=== PATIENT | male | born 1955 | race African-American/Black ===

== ENCOUNTER 2016-05-15 23:38 | Emergency (ER) | payer OTHER ==
[~2016-05-15] VITALS: Ht 182.9 cm; Wt 74.0 kg
[~2016-05-15 23:38] MED LIST: Z.0.NO CURRENT MEDS
[2016-05-15 23:39] VITALS: BP 133/79; PULSE 76; RESP 18; TEMP 97.6; O2SAT 97
[2016-05-16] MEDS ORDERED: KETOROLAC TROMETHAMINE 60 MG/2 ML (IM) VIAL IM ONE (01:30)
[2016-05-16] MEDS ORDERED: CYCLOBENZAPRINE HCL 10 MG TAB PO ONE (01:30)
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
[2016-05-16 02:38] LABS: AUTOMATED NEUTROPHIL # 6.1 TH/MM3 (1.8-7.7); BASOPHIL % 0.6 % (0.0-2.0); EOSINOPHIL # 0.1 TH/MM3 (0-0.4); EOSINOPHIL % 0.7 % (0.0-4.0); HEMATOCRIT 41.2 % (39.0-51.0); HEMO FLAGS DIFF FINAL; LYMPH % 14.3 % (9.0-44.0); LYMPHOCYTE # 1.1 TH/MM3 (1.0-4.8); MEAN CELL VOLUME 87.3 FL (80.0-100.0); MEAN CORPUSCULAR HEMOGLOBIN 29.9 PG (27.0-34.0); MEAN CORPUSCULAR HGB CONC 34.3 % (32.0-36.0); MONO % 7.6 % (0.0-8.0); NEUT % 76.8 % (16.0-70.0); PLATELET COUNT 255 TH/MM3 (150-450); RED BLOOD COUNT 4.72 MIL/MM3 (4.50-5.90); RED CELL DISTRIBUTION WIDTH 15.2 % (11.6-17.2); WHITE BLOOD COUNT 7.9 TH/MM3 (4.0-11.0)
[2016-05-16 03:03] LABS: BICARBONATE 33.1 MEQ/L (21.0-32.0); POTASSIUM 3.5 MEQ/L (3.5-5.1)
[2016-05-16] MEDS ORDERED: IOHEXOL 350 MG/ML 10 ML VIAL (for RAD DIAG) IV ONE (03:24)
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
[2016-05-16] MEDS ORDERED: oxyCODONE/ACETAMINOPHEN 5 MG/325 MG TAB PO ONE (04:30)
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
[2016-05-16] MEDS ORDERED: PERC5TAB12 PO (05:36)
== END 2016-05-16 06:16 | disposition home or self-care (01) ==
LOC: NEPE 23:38
DX: S32.008A Other fracture of unspecified lumbar vertebra, initial encounter for closed fracture (principal); V43.52XA Car driver injured in collision with other type car in traffic accident, initial encounter
CPT/HCPCS: 71020; 72110; 74177; 80048; 85025; 96372; 99284; J1885; Q9967

== ENCOUNTER 2016-09-27 00:07 | Observation (INO) | payer MEDICARE, OTHER ==
[2016-09-27] VITALS (8 sets, daily range): BP systolic 99–139; BP diastolic 60–78; PULSE 54–89; RESP 16–18; TEMP 96.1–98.3; O2SAT 93–100
[~2016-09-27] VITALS: Ht 180.3 cm; Wt 74.0 kg
[~2016-09-27 00:07] MED LIST changes: +PERC5TAB12 PO; -Z.0.NO CURRENT MEDS
[2016-09-27] MEDS ORDERED: HYDR25TA5 PO (00:25)
[2016-09-27] MEDS ORDERED: IBUP-232 PO (00:25)
--- NOTE | 2016-09-27 00:28 | PD ---
HPI Chief Complaint: Abdominal Pain Time Seen by Provider: 00:28 Travel History International Travel<30 days: No Contact w/Intl Traveler<30days: No Traveled to known affect area: No History of Present Illness HPI 61-year-old male came to the emergency room with history of right lower quadrant tenderness that's been going on for past 6-7 hours. Patient says he vomited 3 times prior to coming to the emergency room. He did not have much of an appetite to eat his lunch today and eating made the pain worse. His never had this kind of pain before. No fever or chills. No history of diarrhea. Pain does not radiate anywhere else. It is 8 out of 10. Vital signs otherwise stable. PFSH Past Medical History Narrative Medical List of his past medical, surgical, social and family history as reviewed from the nursing note. Cardiovascular Problems: Yes (HTN) Diminished Hearing: No Hypertension: Yes Influenza Vaccination: Yes Social History Alcohol Use: No (6 BEERS/DAY (DENIES)) Tobacco Use: Yes (8 PER DAY) Substance Use: No Allergies-Medications (Allergen,Severity, Reaction): Coded Allergies: No Known Allergies (Verified , 09/27/16) Comments List of his allergies reviewed from the nursing note. Reported Meds & Prescriptions Reported Meds & Active Scripts Active Reported [place] (Hydrocodone-Acetaminophen) 5-325 mg Tab 1 Tab PO Q4H PRN Ibuprofen 600 Mg Tab 600 Mg PO Q6H PRN Hydrochlorothiazide 25 Mg Tab 25 Mg PO DAILY Narrative Medication List of his home medications reviewed from the nursing note. Review of Systems Except as stated in HPI: all other systems reviewed are Neg Physical Exam Narrative GENERAL: Awake, alert, moderate distress SKIN: Focused skin assessment warm/dry. HEAD: Atraumatic. Normocephalic. EYES: Pupils equal and round. No scleral icterus. No injection or drainage. ENT: No nasal bleeding or discharge. Dry mucous membrane and coated tongue NECK: Trachea midline. No JVD. CARDIOVASCULAR: Regular rate and rhythm. No murmur appreciated. RESPIRATORY: No accessory muscle use. Clear to auscultation. Breath sounds equal bilaterally. GASTROINTESTINAL: Abdomen soft, right lower quadrant tenderness and guarding, nondistended. Diminished bowel sounds. Hepatic and splenic margins not palpable. MUSCULOSKELETAL: No obvious deformities. No clubbing. No cyanosis. No edema. NEUROLOGICAL: Awake and alert. No obvious cranial nerve deficits. Motor grossly within normal limits. Normal speech. PSYCHIATRIC: Appropriate mood and affect; insight and judgment normal. Data Data Last Documented VS Orders Complete Blood Count With Diff (09/27/16 00:33) Comprehensive Metabolic Panel (09/27/16 00:33) Lipase (09/27/16 00:33) Urinalysis - C+S If Indicated (09/27/16 00:33) Ct Abd/Pel W/O Iv Contrast (09/27/16 00:33) Iv Access Insert/Monitor (09/27/16 00:33) Ecg Monitoring (09/27/16 00:33) Oximetry (09/27/16 00:33) Morphine Inj (Morphine Inj) (09/27/16 00:45) Ondansetron Inj (Zofran Inj) (09/27/16 00:45) Sodium Chlor 0.9% 1000 Ml Inj (Ns 1000 M (09/27/16 00:33) Sodium Chloride 0.9% Flush (Ns Flush) (09/27/16 00:45) Blood Culture (09/27/16 01:51) Piperacil-Tazo 3.375 Gm Premix (Zosyn 3. (09/27/16 02:00) Sodium Chlor 0.9% 1000 Ml Inj (Ns 1000 M (09/27/16 02:00) Admit Order (Ed Use Only) (09/27/16 02:12) Bupivacaine-Epi Pf 0.5% Inj (Sensorcaine (09/27/16 06:57) Place In Observation (09/27/16 08:14) Code Status (09/27/16 08:14) Vital Signs (Adult) YESI.Q4H (09/27/16 08:14) Activity Oob Ad [place] (09/27/16 08:14) ^ Discontinue Iv (09/27/16 08:14) Ice / Cold Pack PRN (09/27/16 08:14) Diet Regular Basic (09/27/16 Breakfast) Sodium Chlor 0.9% 1000 Ml Inj (Ns 1000 M (09/27/16 08:14) Sodium Chloride 0.9% Flush (Ns Flush) (09/27/16 08:15) Sodium Chloride 0.9% Flush (Ns Flush) (09/27/16 09:00) Ketorolac Inj (Toradol Inj) (09/27/16 08:15) Acetamin-Hydrocod 325-5 Mg ([place] 5-325 (09/27/16 08:15) Morphine Inj (Morphine Inj) (09/27/16 08:15) Resp Incentive Spirometry (09/27/16 08:14) ^ Follow Up (09/27/16 08:14) Acetamin-Hydrocod 325-5 Mg ([place] 5-325 (09/27/16 08:15) Morphine Inj (Morphine Inj) (09/27/16 08:15) Ondansetron Inj (Zofran Inj) (09/27/16 08:15) Diphenhydramine (Benadryl) (09/27/16 08:15) Post-Op Orders (For Pharmacy) (Post-Op O (09/27/16 08:15) Do Not Adm Any Anticoagulants (09/27/16 08:15) Scd Bilateral/Knee High YESI.QSHIFT (09/27/16 08:14) Jony Bilateral/Knee High YESI.QSHIFT (09/27/16 08:14) Notify Dr: Blood Pressure (09/27/16 08:14) Notify Dr: Respiratory Rate (09/27/16 08:14) Naloxone Inj (Narcan Inj) (09/27/16 08:15) ^ Discharge Plan (09/27/16 08:14) Labs Laboratory Tests Test 09/27/16 09/27/16 00:40 02:45 White Blood Count 11.5 TH/MM3 Red Blood Count 4.75 MIL/MM3 Hemoglobin 14.1 GM/DL Hematocrit 42.3 % Mean Corpuscular Volume 89.0 FL Mean Corpuscular Hemoglobin 29.7 PG Mean Corpuscular Hemoglobin 33.4 % Concent Red Cell Distribution Width 15.3 % Platelet Count 223 TH/MM3 Mean Platelet Volume 7.8 FL Neutrophils (%) (Auto) 77.9 % Lymphocytes (%) (Auto) 16.1 % Monocytes (%) (Auto) 5.2 % Eosinophils (%) (Auto) 0.5 % Basophils (%) (Auto) 0.3 % Neutrophils # (Auto) 8.9 TH/MM3 Lymphocytes # (Auto) 1.8 TH/MM3 Monocytes # (Auto) 0.6 TH/MM3 Eosinophils # (Auto) 0.1 TH/MM3 Basophils # (Auto) 0.0 TH/MM3 CBC Comment DIFF FINAL Differential Comment Sodium Level 141 MEQ/L Potassium Level 4.1 MEQ/L Chloride Level 104 MEQ/L Carbon Dioxide Level 29.4 MEQ/L Anion Gap 8 MEQ/L Blood Urea Nitrogen 10 MG/DL Creatinine 1.08 MG/DL Estimat Glomerular Filtration 84 ML/MIN Rate Random Glucose 153 MG/DL Calcium Level 9.0 MG/DL Total Bilirubin 0.4 MG/DL Aspartate Amino Transf 28 U/L (AST/SGOT) Alanine Aminotransferase 27 U/L (ALT/SGPT) Alkaline Phosphatase 87 U/L Total Protein 7.2 GM/DL Albumin 3.7 GM/DL Lipase 30 U/L Urine Color YELLOW Urine Turbidity CLEAR Urine pH 5.5 Urine Specific [place] 1.020 Urine Protein NEG mg/dL Urine Glucose (UA) NEG mg/dL Urine Ketones TRACE mg/dL Urine Occult Blood NEG Urine Nitrite NEG Urine Bilirubin NEG Urine Urobilinogen LESS THAN 2.0 MG/DL Urine Leukocyte Esterase NEG Urine RBC 1 /hpf Urine WBC 1 /hpf Urine Mucus FEW /lpf Microscopic Urinalysis Comment CULT NOT INDICATED MDM Medical Decision Making Medical Screen Exam Complete: Yes Emergency Medical Condition: Yes Medical Record Reviewed: Yes Differential Diagnosis Acute appendicitis, acute peritonitis, acute diverticulitis, abdominal pain NOS Narrative Course 12:58 AM given the exam suspicion is really high for acute appendicitis. Awaiting for the blood test results to come back and the CAT scan to be done and resulted. Patient is getting IV fluid and pain medication. 1:52 AM CAT scan report is positive for early appendicitis. I've given him a dose of Zosyn and another liter of IV fluid bolus. Awaiting for the surgeon to call back. 1:54 AM I spoke with the general surgeon Dr. Doty who wanted the patient to be admitted to the hospitalist service. He will consult and do the surgery. [address] Reavse was asked for admission and thought it was inappropriate medical admission since it was primarily a surgical issue. This was conveyed to Dr. Doty and he was wiling to admit the patient but wanted the patient to be in the ER till 8AM when he would come and take the patient to the OR. Patient has been kept NPO and updated about the OR. Procedures EKG Prior to Arrival: No Physician Communication Physician Communication Dr. Doty Diagnosis Primary Impression: Acute appendicitis Qualified Code: K35.80 - Acute appendicitis, unspecified acute appendicitis type Admitting Information Admitting Physician Requests: it Venkat Sorensen MD September 27, 2016 00:28
[2016-09-27] MEDS ORDERED: SODIUM CHLOR 0.9% 1000 ML INJ 1,000 ML IV SCH ×2 (00:33→08:14)
[2016-09-27] MEDS ORDERED: ONDANSETRON HCL 4 MG/2 ML VIAL IVP ONE (00:45)
[2016-09-27] MEDS ORDERED: SODIUM CHLORIDE 0.9% FLUSH 10 ML FLUSH IV FLUSH PRN (00:45)
[2016-09-27] MEDS ORDERED: MORPHINE SULFATE 4 MG/ML INJ IV PUSH ONE (00:45)
[2016-09-27 00:46] LABS: AUTOMATED NEUTROPHIL # 8.9 TH/MM3 (1.8-7.7); BASOPHIL % 0.3 % (0.0-2.0); EOSINOPHIL # 0.1 TH/MM3 (0-0.4); EOSINOPHIL % 0.5 % (0.0-4.0); HEMATOCRIT 42.3 % (39.0-51.0); HEMO FLAGS DIFF FINAL; LYMPH % 16.1 % (9.0-44.0); LYMPHOCYTE # 1.8 TH/MM3 (1.0-4.8); MEAN CORPUSCULAR HEMOGLOBIN 29.7 PG (27.0-34.0); MEAN CORPUSCULAR HGB CONC 33.4 % (32.0-36.0); MONO % 5.2 % (0.0-8.0); NEUT % 77.9 % (16.0-70.0); PLATELET COUNT 223 TH/MM3 (150-450); RED BLOOD COUNT 4.75 MIL/MM3 (4.50-5.90); RED CELL DISTRIBUTION WIDTH 15.3 % (11.6-17.2); WHITE BLOOD COUNT 11.5 TH/MM3 (4.0-11.0)
[2016-09-27 01:11] LABS: ALKALINE PHOSPHATASE 87 U/L (45-117); TOTAL BILIRUBIN ADULT 0.4 MG/DL (0.2-1.0)
[2016-09-27 01:14] LABS: ALT (GPT) 27 U/L (12-78); ANION GAP 8 MEQ/L (5-15); AST (GOT) 28 U/L (15-37); BICARBONATE 29.4 MEQ/L (21.0-32.0); BLOOD UREA NITROGEN 10 MG/DL (7-18); CHLORIDE 104 MEQ/L (98-107); GLOMERULAR FILTRATION RATE 84 ML/MIN (>89); POTASSIUM 4.1 MEQ/L (3.5-5.1); SODIUM (NA) 141 MEQ/L (136-145)
--- NOTE | 2016-09-27 01:23 | RADRPT ---
EXAM DATE/TIME: 09/27/2016 00:58 [facility] COMPARISON: CT ABDOMEN & PELVIS W CONTRAST, May 16, 2016, 3:21. INDICATIONS : Mid abdominal pain. ORAL CONTRAST: No oral contrast ingested. RADIATION DOSE: 4.75 CTDIvol (mGy) MEDICAL HISTORY : Hypertension. SURGICAL HISTORY : None. ENCOUNTER: Initial ACUITY: 3 days PAIN SCALE: 6/10 LOCATION: medial abdomen TECHNIQUE: Volumetric scanning of the abdomen and pelvis was performed. Using automated exposure control and ad justment of the mA and/or kV according to patient size, radiation dose was kept as low as reasonably achievable to obtain optimal diagnostic quality images. FINDINGS: Lung bases are clear dependent atelectasis. No acute findings in the liver, spleen, adrenals, kidneys or pancreas. His pancreatic calcification d istally characteristic of chronic pancreatitis. The appendix is borderline distended to about 1 cm in maximal diameter. There is a linear 5 mm append icolith. Minimal periappendiceal inflammatory change present. Findings are characteristic of a very e nora or mild appendicitis. No free fluid or free air. No bowel obstruction. No adenopathy. CONCLUSION: 1. Appendix borderline distended with appendicolith and minimal inflammatory change. Findings are christina racteristic of a very early or very mild appendicitis. Segun Arteaga MD on September 27, 2016 at 1:13 Board Certified Radiologist. This report was verified electronically.
[2016-09-27] MEDS ORDERED: PIPERACIL-TAZO 3.375 GM PREMIX 50 ML IV ONE (02:00)
[2016-09-27] MEDS ORDERED: SODIUM CHLOR 0.9% 1000 ML INJ 1,000 ML IV ONE (02:00)
[2016-09-27 03:58] LABS: BLOOD, URINE NEG (NEG); COMMENT (UR) CULT NOT INDICATED; CULTURE IF INDICATED CULT NOT INDICATED; GLUCOSE,URINE NEG (NEG); KETONE, URINE TRACE mg/dL (NEG); MUCUS URINE FEW /lpf (OCC); NITRITE,URINE NEG (NEG); PH, URINE 5.5 (5.0-8.5); URINE COLOR YELLOW (YELLW/STRAW)
[2016-09-27] MEDS ORDERED: BUPIVACAINE/EPINEPHRINE 0.5% PF 30 ML VIAL ONE (06:57)
--- NOTE | 2016-09-27 07:51 | MH ---
cc: DIANE BORRERO M.D. DATE OF ADMISSION: 09/27/2016 CHIEF COMPLAINT Appendicitis. HISTORY OF PRESENT ILLNESS Mr. Feldman is a very pleasant 61 year-old -[place] male who presented to the emergency department late last night complaining of a 6-hour history of right lower quadrant pain associated with nausea and vomiting. He was seen and evaluate Dr. Sorensen. He was found have a slight elevation of his white count and tenderness in the right lower quadrant. CT scan of the abdomen and pelvis was obtained and this demonstrated early appendicitis. Surgical consultation was requested. The patient denies previous episodes. He reports nausea and vomiting. He denies fever or chills. Pain is mainly in the right lower quadrant made worse by movement. PAST MEDICAL HISTORY Hypertension. PAST SURGICAL HISTORY None. MEDICATIONS He takes a blood pressure pill but he does not know the name. He also takes ibuprofen for his left knee. ALLERGIES: NO KNOWN DRUG ALLERGIES. SOCIAL HISTORY: He smokes about 6 to 10 cigarettes a day. He denies alcohol use. He lives here locally. FAMILY HISTORY: Denies any major medical illnesses. PHYSICAL EXAMINATION VITAL SIGNS: Temperature is 97.5, pulse is 60, blood pressure is 130/60, respiratory rate 20. GENERAL: A pleasant -[place] male sitting in the emergency room in no apparent distress. HEENT: Pupils equal, round and reactive to light. Extraocular movements intact. Oropharynx clear and moist. NECK: Supple. No masses. LUNGS: Clear to auscultation bilaterally. HEART: S1-S2 no murmur. ABDOMEN: Soft, tender in the right lower quadrant with some voluntary guarding. EXTREMITIES: Free range of motion x4. NEUROLOGIC: Alert, oriented x3. LABORATORY DATA: White blood cell count is 11.5 with 77% neutrophils. Hemoglobin 14. Platelet count 223. Electrolytes are all within normal limits. Slight elevation of glucose at 153. Urinalysis is negative. IMAGING STUDIES: CT scan of the abdomen and pelvis demonstrates slight enlargement and thickening of the appendix in the right lower quadrant, consistent with early appendicitis. IMPRESSION Appendicitis. PLAN Risks and benefits of open laparoscopic appendectomy was discussed with the patient. He is agreeable. Operating room was notified and he will be brought up immediately. MD ONEIDA Mccallum/CHIP /7:16 AM /7:45 AM
[2016-09-27] MEDS ORDERED: MORPHINE SULFATE 4 MG/ML INJ IV PUSH PRN (08:15)
[2016-09-27] MEDS ORDERED: SODIUM CHLORIDE 0.9% FLUSH 5 ML FLUSH IVF PRN (08:15)
[2016-09-27] MEDS ORDERED: diphenhydrAMINE HCL 25 MG CAP PO PRN (08:15)
[2016-09-27] MEDS ORDERED: MORPHINE SULFATE 8 MG/ML INJ IV PUSH PRN (08:15)
[2016-09-27] MEDS ORDERED: Post-op Orders (for Pharmacy) MISC XX ONE (08:15)
[2016-09-27] MEDS ORDERED: ACETAMINOPHEN/HYDROcodone 325 MG/5 MG TAB PO PRN ×2 (08:15)
[2016-09-27] MEDS ORDERED: NALOXONE HCL 0.4 MG/ML AMP IV PRN (08:15)
[2016-09-27] MEDS ORDERED: ONDANSETRON HCL 4 MG/2 ML VIAL IV PRN (08:15)
[2016-09-27] MEDS ORDERED: KETOROLAC TROMETHAMINE 30 MG/ML (IVP) VIAL IVP PRN (08:15)
--- NOTE | 2016-09-27 08:19 | HHI.PR ---
Immediate Post Op Note Procedure Date: September 27, 2016 Pre Op Diagnosis: (1) Acute appendicitis Post Op Diagnosis: (1) Acute appendicitis Surgeon: Ghanshyam Doty Ramp Lead(s): staff Procedure: lap appy Findings: appedicitis Anesthesia: General Drains: None IVF Patient to: PACU Patient Condition: Good Ghanshyam Doty MD September 27, 2016 08:19
--- NOTE | 2016-09-27 08:38 | MP ---
cc: DIANE BORRERO M.D. DATE OF SURGERY: 09/27/2016 PREOPERATIVE DIAGNOSIS: Acute appendicitis POSTOPERATIVE DIAGNOSIS: Acute appendicitis OPERATION: Laparoscopic appendectomy SURGEON Diane Borrero MD. ANESTHESIA General endotracheal anesthesia COMPLICATIONS None INDICATIONS FOR PROCEDURE: Mr. Feldman is a very pleasant 61 year-old gentleman who presented to the emergency department early this morning with complaints of a seven hour history of right lower quadrant abdominal pain. He was worked up by Dr. Sorensen, found to have acute appendicitis by history, physical and CT imaging. Surgical consultation was requested. The patient was seen, evaluated and offered immediate appendectomy. The risks and benefits of laparoscopic appendectomy was discussed with him. He was agreeable. DETAILS: The patient was identified, brought to the operating room, placed supine on the operating room table. After adequate general endotracheal anesthesia had been achieved, the abdomen was prepped and draped in standard surgical fashion. Supraumbilical space anesthetized with 0.25% Marcaine. Supraumbilical incision was made. Dissection was carried down to the subcutaneous tissue to the midline fascia. Midline fascia was then incised sharply. A finger was then placed in the peritoneal cavity without difficulty. Blunt balloon trocar was inserted and the abdomen was insufflated to 15 mmHg using CO2 gas. Next two 5 mm trocars were placed in the lower midline under direct vision after anesthetizing the skin and subcutaneous tissue with 0.25% Marcaine. Attention was directed to the right lower quadrant where an inflamed appendix was immediately identified. Appendix was then grasped. Harmonic scalpel was used to take down the appendiceal mesentery to the level of cecal base. Once the cecal base was achieved two 2-0 Vicryl Endoloops were placed on the cecal base. Distal appendix was then transected with the harmonic scalpel. It was placed into an Endopouch bag. Appendix was then brought out through the supraumbilical port, inspected, and sent to pathology for analysis. Next the abdominal cavity was visualized. Endoloops were inspected and checked and found to be intact on the end of the cecal base with no evidence of leakage of stool. The right lower quadrant was irrigated out with one liter warm saline solution. Effluent was noted to be clear. Appendiceal mesentery was inspected. There was no bleeding. Omentum was then placed over the cecal base. Irrigant was then removed from the abdominal cavity. Abdomen was then desufflated. All trocars removed under direct vision. Midline fascia was repaired with 0 Vicryl in [id number] fashion. Skin was closed with 4-0 Vicryl. The patient tolerated the procedure well, was awakened, and brought to the Recovery Room in stable condition. Diane MD ONEIDA Borrero/CHIP /8:19 AM /8:24 AM
[2016-09-27] MEDS ORDERED: fentaNYL CITRATE 250 MCG/5 ML AMP ONE (08:41)
[2016-09-27] MEDS ORDERED: MIDAZOLAM HCL 2 MG/2 ML VIAL ONE (08:41)
[2016-09-27] MEDS ORDERED: SODIUM CHLORIDE 0.9% FLUSH 5 ML FLUSH IVF SCH (09:00)
[2016-09-27] MEDS ORDERED: NEOSTIGMINE 3 MG/3 ML SYR IV ONE (12:00)
[2016-09-27] MEDS ORDERED: PROPOFOL 200 MG/20 ML AMP IV ONE (12:00)
[2016-09-27] MEDS ORDERED: KETOROLAC TROMETHAMINE 60 MG/2 ML (IM) VIAL IM ONE (12:00)
[2016-09-27] MEDS ORDERED: ONDANSETRON HCL 4 MG/2 ML VIAL IV PUSH ONE (12:00)
[2016-09-27] MEDS ORDERED: NORC5TAB PO (18:21)
== END 2016-09-27 18:40 | disposition home or self-care (01) ==
LOC: NEPE 00:07 → NEDA 02:13 → UNDOADMIN 02:13 → NEDA 06:25 → NEDH 06:25 → NEDA 08:15 → INTOOBSV 08:15 → NEDH 09:13 → N06B 09:13 → UNDODISIN 18:40
PROVIDERS: ADMIT Surgery Trauma Surgery; ATTEND Surgery Trauma Surgery
DX: K35.80 Unspecified acute appendicitis (principal); I10 Essential (primary) hypertension; F17.210 Nicotine dependence, cigarettes, uncomplicated; R11.10 Vomiting, unspecified
CPT/HCPCS: 00840; 44970; 74176; 80053; 81001; 83690; 85025; 87040; 88304; 94150; 96361; 96374; 96375; 99285; G0378; J1885; J2250; J2270; J2405; J2543; J2710; J3010; J7030

== ENCOUNTER 2016-10-06 09:51 | Emergency (ER) | payer OTHER ==
[~2016-10-06] VITALS: Ht 182.9 cm; Wt 70.0 kg
[~2016-10-06 09:51] MED LIST changes: +HYDR25TA5 PO; +IBUP-232 PO; +NORC5TAB PO; -PERC5TAB12 PO
[2016-10-06 09:53] VITALS: BP 120/75; PULSE 85; RESP 16; TEMP 97.8; O2SAT 99
--- NOTE | 2016-10-06 10:11 | PD ---
HPI Chief Complaint: Wound/Suture/Staple Re-Check Time Seen by Provider: 10:07 Travel History International Travel<30 days: No Contact w/Intl Traveler<30days: No Traveled to known affect area: No History of Present Illness HPI 61-year-old male presents to emergency department requesting suture removal from surgical incision to his belly button from appendectomy on September 27. His surgeon was Dr. Doty. He has not followed up with him since the surgery. He denies fever, vomiting. Denies redness, swelling, drainage from the surgical site. Has no other medical complaints. No known allergies. No other modifying factors or associated signs and symptoms. History Social History Alcohol Use: No (6 BEERS/DAY (DENIES)) Tobacco Use: Yes (8 PER DAY) Allergies-Medications (Allergen,Severity, Reaction): Coded Allergies: No Known Allergies (Verified , 09/27/16) Reported Meds & Prescriptions Reported Meds & Active Scripts Active Reported [place] (Hydrocodone-Acetaminophen) 5-325 mg Tab 1 Tab PO Q4H PRN Ibuprofen 600 Mg Tab 600 Mg PO Q6H PRN Hydrochlorothiazide 25 Mg Tab 25 Mg PO DAILY Review of Systems Except as stated in HPI: all other systems reviewed are Neg Physical Exam Narrative GENERAL: Well-nourished, well-developed male patient, in no acute distress; afebrile, nontoxic-appearing SKIN: Warm and dry. Surgical incision to the umbilicus that is well approximated and without erythema, edema, drainage; no sutures or sekou noted. No signs of infection. HEAD: Atraumatic. Normocephalic. EYES: Pupils equal and round. No scleral icterus. No injection or drainage. ENT: Mucosa pink and moist. Airway patent. NECK: Trachea midline. CARDIOVASCULAR: Regular rate. RESPIRATORY: No accessory muscle use. GASTROINTESTINAL: Flat. MUSCULOSKELETAL: No obvious deformities. No clubbing. No cyanosis. No edema. NEUROLOGICAL: Awake and alert. Oriented 3. No obvious cranial nerve deficits. Motor grossly within normal limits. Normal speech. PSYCHIATRIC: Appropriate mood and affect; insight and judgment normal. Data Data Last Documented VS Vital Signs Date Time Temp Pulse Resp B/P Pulse Ox O2 Delivery O2 Flow Rate FiO2 10/06/16 09:53 97.8 85 16 120/75 99 MDM Medical Screen Exam Complete: Yes Emergency Medical Condition: No Differential Diagnosis Suture removal, staple removal, wound recheck, medical clearance Narrative Course 61-year-old male presents for suture removal post appendectomy on September 27. Patient says Dr. Doty did his surgery and he has not followed up with him since. The surgical incision to his umbilicus is well approximated and I do not see any sutures or sekou to the surgical site. There is no signs of infection. Instructed patient to follow-up with Dr. doty. Vital signs are stable and the patient is stable for outpatient follow-up and treatment. The patient has no urgent or emergent medical complaints. There is no emergent or urgent medical need at this time. I instructed the patient to follow up with their primary care provider. A medical screening exam was performed: At the time of evaluation the presenting medical condition was determined not to be of an emergent nature. The patient was given the option of receiving additional care, but declined. Patient was given options for additional community resources from which to obtain care. The Patient Has Been advised to seek medical attention for their presenting complaint. The patient has been advised to return to the ER at any time if an emergent condition develops. Primary Impression: Encounter for medical screening examination Condition: Stable Su Alonso [employer] Oct 06, 2016 10:11
== END 2016-10-06 10:09 | disposition left against medical advice (07) ==
LOC: NEPK 09:51
DX: Z76.89 Persons encountering health services in other specified circumstances (principal)
CPT/HCPCS: 99281